=== PATIENT | female | born 1940 | race Caucasian/White ===

== ENCOUNTER 2018-05-27 12:59 | Outpatient (REF) | payer MEDICARE, BC ==
[~2018-05-27] VITALS: Ht 152.4 cm; Wt 71.7 kg
[~2018-05-27 12:59] MED LIST: ACCOLATE10 MG; ADLT ASA LOW81 MG PO; BABY ASPIRIN81 MG OR; BONIVA150 MG OR; CALCIUM/D250 MG PO; CALTRAT1 PO; COMBIVENT INH; COREG3.125 MG OR; HYZAAR1 TA1 OR; HYZAAR1 TA2 PO; IMDUR60 MG OR; IMDUR60 MG PO; K-LOR20 MEQ OR; KLOR-CON20 MEQ PO; NEXIUM40 M1 PO; NORVASC10 M1 PO; NORVASC10 MG OR; PROLIA60 MG/ML SC; PROTONIX40 M4 PO; TOPROL XL25 MG PO; VITAMIN D400 MG PO; VYTORIN 10/201 TAB OR; XANAX0.25 MG OR; ZOCOR20 M1 PO; ZOCOR20 MG PO
[2018-05-27] MEDS ORDERED: FOLIC ACID1 MG PO (13:11)
[2018-05-27] MEDS ORDERED: TRAMADOL HCL50 MG PO (13:12)
== END 2018-05-27 14:52 | disposition home or self-care (01) ==
LOC: INF 12:59
PROVIDERS: ATTEND Family Medicine
DX: M81.0 Age-related osteoporosis without current pathological fracture (principal)
CPT/HCPCS: J0897

== ENCOUNTER 2019-06-16 12:42 | Emergency (ER) | payer MEDICARE, BC ==
[~2019-06-16] VITALS: Ht 152.4 cm; Wt 68.0 kg
[~2019-06-16 12:42] MED LIST changes: +FOLIC ACID1 MG PO; +TRAMADOL HCL50 MG PO
[2019-06-16] MEDS ORDERED: HYDRALAZINE100 MG PO (13:48)
[2019-06-16 14:52] LABS: HEMATOCRIT 49.1 % (37.0-47.0); HEMOGLOBIN 16.6 g/dl (12.0-16.0); IMMATURE GRANULOCYTES 0.4 % (0.0-5.0); MEAN CELL VOLUME 83.5 fL CALC (80.0-100.0); MEAN CORPUSCULAR HGB 28.2 pG CALC (26.0-32.0); MEAN CORPUSCULAR HGB CONC 33.8 g/L CALC (32.0-36.0); NEUT# 10.65 thou/uL (2.00-7.15); RED BLOOD COUNT 5.88 mill/uL (4.20-5.60); RED CELL DISTRI WIDTH 13.2 % (11.5-15.5)
[2019-06-16 15:13] LABS: ALBUMIN 4.5 g/dL (3.2-5.0); ALKALINE PHOSPHATASE 117 u/l (38-126); ANION GAP 16 (6-22 (CALC)); BILIRUBIN, TOTAL 0.7 mg/dL (0.0-1.4); BUN 17 mg/dL (8-23); BUN/CREATININE RATIO 17 (12-20 (CALC)); CARBON DIOXIDE 27 mmol/l (22-30); CHLORIDE 98 mmol/l (95-108); GFR 53 ML/MIN (>=60 (CALC)); GFR FOR AFR.AMER. > 60 ML/MIN (>=60 (CALC)); POTASSIUM 4.1 mmol/l (3.5-5.1); SGOT/AST 32 u/l (9-36); SODIUM 137 mmol/l (137-146); TOTAL PROTEIN 7.7 g/dL (6.3-8.2)
[2019-06-16] MEDS ORDERED: PLAVIX75 MG PO (16:01)
[2019-06-16 16:51] LABS: URINE BILIRUBIN - DIPSTICK NEGATIVE (NEGATIVE); URINE BLOOD DIPSTICK NEGATIVE (NEGATIVE); URINE COLOR YELLOW; URINE GLUCOSE - DIPSTICK NEGATIVE (NEGATIVE); URINE KETONE NEGATIVE (NEGATIVE); URINE LEUK ESTERASE NEGATIVE (NEGATIVE); URINE NITRITE - DIPSTICK NEGATIVE (Negative); URINE PH 7.5 (4.5-8.0); URINE PROTEIN - DIPSTICK TRACE mg/dL (NEG-TRACE); URINE SPECIFIC GRAVITY 1.015; URINE UROBILINOGEN - DIPSTICK 0.2 E.U./dL (0.2)
[2019-06-16] MEDS ORDERED: TRAMADOL HCL50 MG PO (17:58)
[2019-06-16 18:27] VITALS: BP 163/85
== END 2019-06-16 19:28 | disposition home or self-care (01) ==
LOC: ED 12:42
PROVIDERS: Family Medicine
DX: R51 Headache (principal); E11.9 Type 2 diabetes mellitus without complications; I10 Essential (primary) hypertension

== ENCOUNTER 2020-09-24 07:34 | Observation (INO) | payer MEDICARE, BC ==
[~2020-09-24] VITALS: Ht 152.4 cm; Wt 63.0 kg
[~2020-09-24 07:34] MED LIST changes: +HYDRALAZINE100 MG PO; +HYDROCO/APAP1 TA9 PO; +PLAVIX75 MG PO
[2020-09-24 08:36] LABS: HEMATOCRIT 45.8 % (37.0-47.0); HEMOGLOBIN 15.4 g/dl (12.0-16.0); IMMATURE GRANULOCYTES 0.5 % (0.0-5.0); MEAN CELL VOLUME 83.4 fL CALC (80.0-100.0); MEAN CORPUSCULAR HGB 28.1 pG CALC (26.0-32.0); MEAN CORPUSCULAR HGB CONC 33.6 g/dL CAL (32.0-36.0); NEUT# 6.51 thou/uL (2.00-7.15); RED BLOOD COUNT 5.49 mill/uL (4.20-5.60)
[2020-09-24 08:53] LABS: ALBUMIN 3.6 g/dL (3.2-5.0); ALKALINE PHOSPHATASE 103 u/l (38-126); BILIRUBIN, TOTAL 0.7 mg/dL (0.0-1.4); BUN 20 mg/dL (8-23); BUN/CREATININE RATIO 24 (12-20 (CALC)); CHLORIDE 103 mmol/l (95-108); CPK 53 u/l (30-165); CREATININE 0.9 mg/dL (0.5-1.0); ETHYL ALCOHOL 0 mg/dl (0-30); GFR 60 ML/MIN (>=60 (CALC)); GFR FOR AFR.AMER. > 60 ML/MIN (>=60 (CALC)); LIPASE 30 u/l (23-300); MAGNESIUM 1.9 mg/dL (1.6-2.3); POTASSIUM 4.2 mmol/l (3.5-5.1); SGOT/AST 59 u/l (9-36); SODIUM 135 mmol/l (137-146); TOTAL PROTEIN 6.4 g/dL (6.3-8.2)
[2020-09-24 08:57] LABS: ANION GAP 17 (6-22 (CALC)); CARBON DIOXIDE 19 mmol/l (22-30)
[2020-09-24 09:03] LABS: ACT PARTIAL THROMBO TIME 24.9 SECONDS (20.0-32.5); INTERNATIONAL NORMALIZED RATIO 1.1 RATIO (0.7-1.3); PROTHROMBIN TIME 10.6 SECONDS (9.0-12.5)
[2020-09-24 09:15] LABS: D-DIMER 1.11 mg/L (0.19-0.60)
[2020-09-24 09:34] LABS: URINE BILIRUBIN - DIPSTICK NEGATIVE (NEGATIVE); URINE BLOOD DIPSTICK SMALL (NEGATIVE); URINE COLOR YELLOW; URINE GLUCOSE - DIPSTICK 250 mg/dL (NEGATIVE); URINE KETONE NEGATIVE (NEGATIVE); URINE NITRITE - DIPSTICK NEGATIVE (Negative); URINE PROTEIN - DIPSTICK NEGATIVE (NEG-TRACE); URINE UROBILINOGEN - DIPSTICK 0.2 E.U./dL (0.2)
[2020-09-24 09:36] LABS: URINE LEUK ESTERASE MODERATE (NEGATIVE)
[2020-09-24 09:46] LABS: URINE BACTERIA FEW hpf; URINE SQUAMOUS EPITHELIAL CELL FEW EPI/hpf (0-FEW); URINE WBC 50-100 WBC/hpf (0-5)
[2020-09-24] MEDS ORDERED: STIOLTO RESPIMA1 AER IN (12:27)
[2020-09-24] MEDS ORDERED: BUSPAR5 MG PO (12:28)
[2020-09-24] MEDS ORDERED: HYZAAR1 TAB PO (12:28)
[2020-09-24] MEDS ORDERED: METOPROLOL SUCC50 MG PO (12:28)
[2020-09-24] MEDS ORDERED: ISOSORB MONO120 MG PO (12:29)
[2020-09-24 13:28] VITALS: BP 133/72
[2020-09-24 15:00] VITALS: BP 134/76
[2020-09-24 18:37] VITALS: BP 128/74
[2020-09-25] VITALS: BP 93/51
[2020-09-25 03:53] VITALS: BP 123/74
[2020-09-25 07:00] VITALS: BP 115/75
[2020-09-25 10:30] VITALS: BP 116/61
[2020-09-25 15:00] VITALS: BP 110/68
[2020-09-25 19:00] VITALS: BP 131/44
[2020-09-26 04:00] VITALS: BP 128/70
[2020-09-26 06:07] LABS: IMMATURE GRANULOCYTES 0.2 % (0.0-5.0); MEAN CELL VOLUME 83.2 fL CALC (80.0-100.0); MEAN CORPUSCULAR HGB CONC 33.6 g/dL CAL (32.0-36.0); NEUT# 2.49 thou/uL (2.00-7.15); RED BLOOD COUNT 4.47 mill/uL (4.20-5.60); RED CELL DISTRI WIDTH 13.5 % (11.5-15.5)
[2020-09-26 06:19] LABS: HEMATOCRIT 37.2 % (37.0-47.0); HEMOGLOBIN 12.5 g/dl (12.0-16.0)
[2020-09-26 06:27] LABS: ALKALINE PHOSPHATASE 70 u/l (38-126); BILIRUBIN, TOTAL 0.5 mg/dL (0.0-1.4); BUN 13 mg/dL (8-23); BUN/CREATININE RATIO 19 (12-20 (CALC)); CHLORIDE 104 mmol/l (95-108); CREATININE 0.7 mg/dL (0.5-1.0); GFR > 60 ML/MIN (>=60 (CALC)); GFR FOR AFR.AMER. > 60 ML/MIN (>=60 (CALC)); POTASSIUM 3.8 mmol/l (3.5-5.1); SGOT/AST 31 u/l (9-36); SODIUM 132 mmol/l (137-146)
[2020-09-26 06:36] LABS: ALBUMIN 2.7 g/dL (3.2-5.0); ANION GAP 9 (6-22 (CALC)); CARBON DIOXIDE 23 mmol/l (22-30); TOTAL PROTEIN 5.1 g/dL (6.3-8.2)
[2020-09-26 08:25] VITALS: BP 135/75
[2020-09-26 09:15] VITALS: BP 135/75
[2020-09-26] MEDS ORDERED: KEFLEX500 MG PO (10:07)
== END 2020-09-26 16:16 ==
LOC: ED 07:34 → ED-I 09:51 → ED 09:51 → ED-I 11:46 → ED 12:01 → MS2 12:02
PROVIDERS: Physician Assistant; ADMIT Internal Medicine; ATTEND Internal Medicine
PROC: 0T9B70Z Drainage of Bladder with Drainage Device, Via Natural or Artificial Opening (ICD-10-PCS; principal; 2020-09-24)
DX: N39.0 Urinary tract infection, site not specified (principal); G93.41 Metabolic encephalopathy; R56.9 Unspecified convulsions; E86.0 Dehydration; I10 Essential (primary) hypertension; E11.9 Type 2 diabetes mellitus without complications; I25.10 Atherosclerotic heart disease of native coronary artery without angina pectoris; B96.20 Unspecified Escherichia coli [E. coli] as the cause of diseases classified elsewhere; Z98.84 Bariatric surgery status; Z98.890 Other specified postprocedural states; Z20.822 Contact with and (suspected) exposure to COVID-19
CPT/HCPCS: J1650; Q9967

== ENCOUNTER 2020-10-24 02:53 | Emergency (ER) | payer MEDICARE, BC ==
[~2020-10-24] VITALS: Ht 152.4 cm; Wt 59.0 kg
[~2020-10-24 02:53] MED LIST changes: +BUSPAR5 MG PO; +HYZAAR1 TAB PO; +ISOSORB MONO120 MG PO; +KEFLEX500 MG PO; +METOPROLOL SUCC50 MG PO; +STIOLTO RESPIMA1 AER IN
[2020-10-24 03:53] LABS: IMMATURE GRANULOCYTES 0.2 % (0.0-5.0); MEAN CELL VOLUME 86.2 fL CALC (80.0-100.0); MEAN CORPUSCULAR HGB 27.9 pG CALC (26.0-32.0); MEAN CORPUSCULAR HGB CONC 32.4 g/dL CAL (32.0-36.0); NEUT# 2.82 thou/uL (2.00-7.15); RED BLOOD COUNT 5.44 mill/uL (4.20-5.60); RED CELL DISTRI WIDTH 13.4 % (11.5-15.5)
[2020-10-24 04:09] LABS: ALKALINE PHOSPHATASE 78 u/l (38-126); ANION GAP 11 (6-22 (CALC)); BUN 16 mg/dL (8-23); BUN/CREATININE RATIO 19 (12-20 (CALC)); CARBON DIOXIDE 26 mmol/l (22-30); CHLORIDE 103 mmol/l (95-108); CREATININE 0.8 mg/dL (0.5-1.0); GFR > 60 ML/MIN (>=60 (CALC)); GFR FOR AFR.AMER. > 60 ML/MIN (>=60 (CALC)); POTASSIUM 3.9 mmol/l (3.5-5.1); SGOT/AST 39 u/l (9-36); SODIUM 136 mmol/l (137-146)
[2020-10-24 04:10] LABS: BILIRUBIN, TOTAL 0.9 mg/dL (0.0-1.4)
[2020-10-24 04:16] LABS: HEMATOCRIT 46.9 % (37.0-47.0); HEMOGLOBIN 15.2 g/dl (12.0-16.0)
[2020-10-24 04:21] LABS: MYOGLOBIN 41 ng/mL (0 - 62)
[2020-10-24 09:01] VITALS: BP 150/62
== END 2020-10-24 09:02 | disposition short-term general hospital (02) ==
LOC: ED 02:53
PROVIDERS: Family Medicine
DX: R56.9 Unspecified convulsions (principal); I62.9 Nontraumatic intracranial hemorrhage, unspecified; E11.9 Type 2 diabetes mellitus without complications; I10 Essential (primary) hypertension; Z98.84 Bariatric surgery status; Z20.822 Contact with and (suspected) exposure to COVID-19

== ENCOUNTER 2020-11-13 | Inpatient (IN) | payer OTHER, MEDICARE, BC ==
[2020-11-13] MEDS ORDERED: DEXAMETHASON0.5 MG PO (07:39)
--- NOTE | 2020-11-13 17:09 | NUR ---
REPORT WAS RECEIVED FROM DEVONTE COLE. PATIENT CAME FROM ICU VIA BED. PATIENT IS NONVERBAL AT THIS TIME. SEIZURE PRECAUTIONS IN PLACE. TOMBSTONE ERECTOR DID BED BATH ON PATIENT. PATIENT HAD A SMALL BM. MCCARTY IS PATIENT WITH YELLOW URINE. CALL LIGHT IN REACH. SAFETY PRECAUTIONS REINFORCED .
[2020-11-13 17:49] VITALS: BP 178/104
--- NOTE | 2020-11-13 19:12 | NUR ---
RECEIVED REPORT FROM ARA FOR THIS PT AND PT IN BED WITH EYES PARTIALLY CLOSED. NOT ABLE TO VERBALI RESPOND BUT MOVES LEFT ARM TO TOUCH AND ABLE TO MOVE BOTH FEET TO TOUCH. RESPIRATION ARE EVEN AND NON LABORED AND SHALLOW. LUNG SOUNDS ARE DIMINISHED. MCCARTY CATH IN PLACE AND DRAINING YELLOW CLEAR URINE. REPOSITIONED IN BED AT THIS TIME AND AND HOB ELEVATED. WILL CONTINUE TO OBSERVE.
[2020-11-13 19:35] VITALS: BP 192/96
--- NOTE | 2020-11-14 00:33 | NUR ---
PT IN BED WITH EYES OPEN WITH NO DISCOMFORT NOTED. RESPIRATION EVEN AND NON LABORED AND SHALLOW BREATHING NOTED. NON PRODUCTIVE WET COUGH NOTED. REPOSITIONED IN BED AND BILAT LOWER EXTREMITIES ELEVATED ON PILLOWS. MCCARTY CATHETER IN PLACE AND DRAINIKNG YELLOW URINE. HOB ELEVATED AND CALL LIGHT WITHIN REACH.
--- NOTE | 2020-11-14 02:53 | NUR ---
pt in bed with eyes closed. repositioned with no complications noted.oral care completed and pt tolerated well. hob eleavated and will continue to observe
[2020-11-14 05:21] VITALS: BP 189/88
--- NOTE | 2020-11-14 05:55 | NUR ---
PTIN BED WITH EYES CLOSED.NO RSPIRATORY DISTRESS NOTED. ADLCARE PROVIDED AND REPOSITIONED AT THIS TIME.ORAL CARE COMPLETED AND PT TOLERATED WELL. MCCARTY CATH CONTINUES TO DRAINYELLOW URINE WITH SOME SEDIMENT NOTED IN TUBING. PTHAS NONPRODUCTIVE COUGH NOTED.HOB ELEVATED.SKIN IS INTACT AND NORMAL COLOR AND WARM TO TOUCH. CALLLIGHT IS WITHIN REACH. WILL CONTINUE TO OBSERVE
[2020-11-14 07:43] VITALS: BP 171/89
--- NOTE | 2020-11-14 07:45 | NUR ---
PATINET LAYING IN BED AT THIS TIME NONE RESPONSIVE EYES OPEN AT THIS TIME. LUNG SOUNDS ARE DIMINISHED IN ALL LUNG HELLER. MCCARTY PATENT AND DRAINING VIOLET URINE. SIDERAILS ARE UP X 2. PATIENT IS NPO AT THIS TIME. EXERCISE SCIENTIST DONE SEE INTERVENTIONS
--- NOTE | 2020-11-14 09:00 | NUR ---
STUART FROM HOSPICE CALLED FOR REPORT ON PATINETS STATUS AND IF SHE WAS ABLE TO TRANSPORT TODAY. STATUS UPDATED GIVEN AND STUART STATED THEY WOULD BE SENDING A NURSE OVER TO SEE PATIENT AND THAT HOSPICE DOES HAVE A BED FOR HER AND WILL SET UP TRANSPORT.
--- NOTE | 2020-11-14 09:58 | NUR ---
PATIENT GIVEN 2MG OF MORPHINE AT THIS TIME BP IS 171/89. PATIENT IN NON VERBAL AT THIS TIME. SIDERAILS ARE UP CALL LIGHT IS WITHIN REACH. WILL CONTINUE TO MONITOR.
--- NOTE | 2020-11-14 11:56 | NUR ---
PATIENT RESTING IN BED AT THIS TIME WITH EYES CLOSED. RESPIRATIONS ARE EASY AND UNLABORED AT THIS TIME. CALL LIGHT WITHIN REACH. SIDERAILS UP X 2. PATIENT REPOSITIONED AT THIS TIME.
--- NOTE | 2020-11-14 14:00 | NUR ---
MEDICATED AT THIS TIME WITH 2MG OF MORPHINE FOR COMFORT MEASURE AND TRANSPORT TO HOSPICE HOUSE.
--- NOTE | 2020-11-14 14:14 | NUR ---
Discharge instructions given. Patient verbalizes understanding of same. Discharged in stable condition via Medical Transport to *Other with *Other. All belongings sent with pt. PATIENT D/C TO HOSPICE HOUSE COMFORT MEASURES ONLY
--- NOTE | 2020-11-14 14:17 | NUR ---
[facility] HERE TO TAKE PATINET TO HOSPICE HOUSE AT THIS TIME.
== END 2020-11-14 15:58 | disposition hospice, inpatient (51) | DRG 951 ==
PROVIDERS: ADMIT Internal Medicine
DX: Z51.5 Encounter for palliative care (principal); I69.251 Hemiplegia and hemiparesis following other nontraumatic intracranial hemorrhage affecting right dominant side; I10 Essential (primary) hypertension; E11.9 Type 2 diabetes mellitus without complications; G40.909 Epilepsy, unspecified, not intractable, without status epilepticus; Z66 Do not resuscitate; Z98.84 Bariatric surgery status

== ENCOUNTER 2020-11-13 06:48 | Observation (INO) | payer MEDICARE, BC ==
[~2020-11-13] VITALS: Ht 152.4 cm; Wt 62.7 kg
--- NOTE | 2020-11-13 06:50 | NUR ---
TO ROOM VIA EMS.
[2020-11-13] MEDS ORDERED: DEXAMETHASON0.5 MG PO (07:39)
[2020-11-13 07:51] LABS: HEMATOCRIT 44.5 % (37.0-47.0); HEMOGLOBIN 15.2 g/dl (12.0-16.0); IMMATURE GRANULOCYTES 0.9 % (0.0-5.0); MEAN CELL VOLUME 83.6 fL CALC (80.0-100.0); MEAN CORPUSCULAR HGB 28.6 pG CALC (26.0-32.0); MEAN CORPUSCULAR HGB CONC 34.2 g/dL CAL (32.0-36.0); NEUT# 7.85 thou/uL (2.00-7.15); RED BLOOD COUNT 5.32 mill/uL (4.20-5.60); RED CELL DISTRI WIDTH 13.7 % (11.5-15.5)
[2020-11-13 08:08] LABS: ALBUMIN 3.5 g/dL (3.2-5.0); ALKALINE PHOSPHATASE 67 u/l (38-126); ANION GAP 11 (6-22 (CALC)); BUN 13 mg/dL (8-23); BUN/CREATININE RATIO 25 (12-20 (CALC)); CARBON DIOXIDE 25 mmol/l (22-30); CHLORIDE 99 mmol/l (95-108); CREATININE 0.5 mg/dL (0.5-1.0); GFR > 60 ML/MIN (>=60 (CALC)); GFR FOR AFR.AMER. > 60 ML/MIN (>=60 (CALC)); POTASSIUM 4.2 mmol/l (3.5-5.1); SGOT/AST 55 u/l (9-36); SODIUM 131 mmol/l (137-146); TOTAL PROTEIN 6.4 g/dL (6.3-8.2)
[2020-11-13 08:09] LABS: BILIRUBIN, TOTAL 1.6 mg/dL (0.0-1.4)
[2020-11-13 08:20] LABS: MYOGLOBIN 23 ng/mL (0 - 62)
--- NOTE | 2020-11-13 09:29 | NUR ---
NICARD CHANGED TO 10MG.
--- NOTE | 2020-11-13 09:38 | NUR ---
PT PROVIDED BREAKFAST, SEEN AT REST IN THE BED SINCE FINISHING, EYES CLOSED, AWAITING DR VENEGAS.
--- NOTE | 2020-11-13 10:30 | NUR ---
PT ARRIVES FROM ER VIA STRETCHER ACCOMPANIED BY PRINCE WHITNEY. PT IS UNRESPONSIVE EXCEPT FOR PAIN STIMULI. NICARDIPINE DRIP DISCONTINUED UPON ARRIVAL PER DR VENEGAS. PT DOES NOT APPEAR TO BE IN PAIN, NO ANXIETY NOTED. OCCASIONAL MOAN HEARD, SOMETIMES PT DOES NOT CLEAR THROAT WELL. DNR/DNI. GRANDDAUGHTER VALENTE AT BEDSIDE.
--- NOTE | 2020-11-13 11:28 | NUR ---
Patient is screened for rehab intervention and PT OT and ST consults are recommended if medical agrees
[2020-11-13 14:58] VITALS: BP 160/95
--- NOTE | 2020-11-13 16:19 | NUR ---
PT REMAINS AT REST IN THE BED BEFORE, NO CHANGE IN STATUS. HOSPICE NURSE HAS BEEN IN TO SEE PT, WILL CHANGE PT OVER TO IN-HOUSE HOSPICE.
== END 2020-11-13 15:59 | disposition hospice, inpatient (51) ==
LOC: ED 06:48 → ED-I 08:20 → ED 08:29 → MS2 08:30 → ICU 08:31
PROVIDERS: Emergency Medicine; ADMIT Internal Medicine; ATTEND Internal Medicine
DX: I61.6 Nontraumatic intracerebral hemorrhage, multiple localized (principal); I69.951 Hemiplegia and hemiparesis following unspecified cerebrovascular disease affecting right dominant side; I10 Essential (primary) hypertension; E11.9 Type 2 diabetes mellitus without complications; Z98.84 Bariatric surgery status; G40.909 Epilepsy, unspecified, not intractable, without status epilepticus; Z66 Do not resuscitate; Z51.5 Encounter for palliative care; Z20.822 Contact with and (suspected) exposure to COVID-19